=== PATIENT | male | born 1950 | race Caucasian/White ===

== ENCOUNTER 2017-02-16 09:58 | Emergency (ER) | payer MEDICARE, OTHER ==
[~2017-02-16] VITALS: Ht 170.2 cm; Wt 82.6 kg
[~2017-02-16 09:58] MED LIST: HUMULIN R100 UNIT/1 SUBQ; LEVEMIR100 UNIT/1 SUBQ; LIPITOR10 MG ORAL; LOSARTAN-HCTZ1 EACH ORAL; LOTENSIN40 MG ORAL; NORCO 5-325 TA1 EACH ORAL; PLAVIX75 MG ORAL; PREVACID30 MG ORAL
[2017-02-16] MEDS ORDERED: GABAPENTIN300 MG ORAL (10:45)
[2017-02-16 10:51] VITALS: BP 153/94
[2017-02-16 10:57] VITALS: BP 153/94
--- NOTE | 2017-02-16 11:04 | Emergency Room Report ---
History of Present Illness General Chief Complaint: Pain Source: Patient Present Illness HPI [id number] with known DM [employer] patient with "muscle spasms" lower extremities for ~1 week Associated with intermittent numbness, "cold legs," and "deep pain." Was given Robaxin by PMD without much improvement Compliant with DM meds Denies fever/chills, weakness to lower extremities Allergies: Coded Allergies: No Known Allergies (Unverified , 09/10/13) Patient History Past Medical History: DM Past Surgical History: none Pertinent Family History: none Social History: Denies: alcohol use, drug use, smoking Immunizations: UTD Reviewed Nursing Documentation: PMH: Agreed, PSxH: Agreed Nursing Documentation-PMH Hx Cardiac Problems: Yes Hx Hypertension: Yes Hx Asthma: Yes Hx Diabetes: Yes Hx Cancer: No Hx Gastrointestinal Problems: Yes Hx Neurological Problems: No Hx Cerebrovascular Accident: Yes - 2011 Review of Systems All Other Systems: negative except mentioned in HPI Physical Exam Vital Signs Date Time Temp Pulse Resp B/P Pulse Ox O2 Delivery O2 Flow Rate FiO2 02/16/17 10:04 97.5 82 16 173/94 95 Room Air Sp02 EP Interpretation: reviewed, normal General Appearance: normal inspection, well appearing, no apparent distress, alert, non-toxic Head: normocephalic, atraumatic Eyes: bilateral eye EOMI, bilateral eye PERRL ENT: normal ENT inspection, hearing grossly normal, normal voice Neck: normal inspection, full range of motion, supple, no bony tend Respiratory: normal inspection, lungs clear, normal breath sounds, no respiratory distress, no retraction, no wheezing Cardiovascular #1: regular rate, rhythm, no edema Gastrointestinal: normal inspection, normal bowel sounds, non tender, soft, no guarding, no hernia Genitourinary: no CVA tenderness Musculoskeletal: normal inspection, back normal, normal range of motion, Nathan' s Sign negative Neurologic: normal inspection, alert, oriented x3, responsive, gauger chief III-XII nml as tested, speech normal Psychiatric: normal inspection, judgement/insight normal, mood/affect normal Skin: normal inspection, normal color, no rash Medical Decision Making Diagnostic Impression: Primary Impression: Neuropathy ER Course Sympotoms c/w neuropathy, likely diabetic related VSS. Afebrile. No calf ttp, negative homans. unlikely DVT No erythema or signs of cellulitis No focal neuro deficits, unlikely CVA Rx Gabapentin to be up dosed as needed by PMD Last Vital Signs Date Time Temp Pulse Resp B/P Pulse Ox O2 Delivery O2 Flow Rate FiO2 02/16/17 10:57 97.5 78 16 153/94 95 Room Air Status: improved Disposition: HOME, SELF-CARE Condition: Improved Scripts Gabapentin* (GABAPENTIN*) 300 Mg Capsule 300 MG ORAL THREE TIMES A DAY for 7 Days, #90 CAP 0 Refills Prov: ARIANA BUITRAGO M.D. 02/16/17 Referrals: NON PHYSICIAN (PCP) Patient Instructions: Peripheral Neuropathy Additional Instructions: - Start Gabapentin 300mg 3x a day - ask your doctor to increase up your dose as needed until relieved ARIANA BUITRAGO M.D. Feb 16, 2017 11:04
== END 2017-02-16 10:57 | disposition home or self-care (01) ==
LOC: EMR 10:15
DX: E11.40 Type 2 diabetes mellitus with diabetic neuropathy, unspecified (principal); I10 Essential (primary) hypertension; Z86.73 Personal history of transient ischemic attack (TIA), and cerebral infarction without residual deficits
CPT/HCPCS: 99283

== ENCOUNTER 2017-04-02 07:37 | Day surgery (SDC) | payer MEDICARE, OTHER ==
--- NOTE | 2017-03-29 11:42 | Pre-Procedure Note/Attestation ---
Pre-Procedure Note/Attestation Complete Prior to Procedure Planned Procedure: bilateral Procedure Narrative: 1- Ptosis correction upper lids. 2- Entropion correction upper lids. 3-Blepharoplasty uppers lids. Indications for Procedure Pre-Operative Diagnosis: 1- Blepharoptosis upper lids 2-Entropion upper lids. 3-Blepharochalasis upper lid Attestation I attest that I discussed the nature of the procedure; its benefits; risks and complications; and alternatives (and the risks and benefits of such alternatives ), prior to the procedure, with the patient (or the patient's legal applications sales representative). I attest that, if there was a reasonable possibility of needing a blood transfusion, the patient (or the patient's legal applications sales representative) was given the [facility] standardized written summary, pursuant to the Wilman Ricci Blood Safety Act ([place] Health and Safety Code # 1645, as amended). I attest that I re-evaluated the patient just prior to the surgery and that there has been no change in the patient's H&P, except as documented below: HUDSON LOPEZ Mar 29, 2017 11:42
[~2017-04-02] VITALS: Ht 172.7 cm; Wt 83.5 kg
[2017-04-02] VITALS (13 sets, daily range): BP systolic 133–185; BP diastolic 75–104
[~2017-04-02 07:37] MED LIST changes: +Akten 3.5% 1ml Btl BOTH EYES ONE; +BSS 15ml BTL ONE; +Bupivacaine 0.75% 30ml vial INJ ONE; +GABAPENTIN300 MG ORAL; +Lidocaine 2% 20mg/ml/Epi 0.005mg/ml 20ml vial ONE; +Maxitrol Opth Oint 3.5gm BOTH EYES ONE; +Povidone-Iodine 5% opth solution ONE
[2017-04-02 09:06] LABS: BASOPHILS % (AUTO) 1.7 % (0.0-2.0); EOSINOPHILS % (AUTO) 3.6 % (0.0-3.0); LYMPHOCYTES % (AUTO) 25.7 % (20.0-45.0); MEAN CORPUSCULAR HGB CONC 33.5 G/DL (32.0-36.0); MEAN CORPUSCULAR VOLUME 92 FL (80-99); MEAN PLATELET VOLUME 9.3 FL (6.5-10.1); MONOCYTES % (AUTO) 8.7 % (1.0-10.0); NEUTROPHILS % (AUTO) 60.3 % (45.0-75.0); PLATELET COUNT 228 K/UL (150-450); RED BLOOD COUNT 4.95 M/UL (4.70-6.10); RED CELL DISTRIBUTION WIDTH 11.2 % (11.6-14.8); WHITE BLOOD COUNT 7.3 K/UL (4.8-10.8)
[2017-04-02 09:16] LABS: PROTHROMBIN TIME 10.2 SEC (9.30-11.50)
[2017-04-02 09:19] LABS: ANION GAP 17 (5-15); CALCIUM 9.1 mg/dL (8.6-10.2); CARBON DIOXIDE 24 mEQ/L (20-30); CHLORIDE 97 mEQ/L (98-107); GLOMERULAR FILTRATION RATE > 60 mL/min (>60); HEMOLYSIS 78; POTASSIUM 4.3 mEQ/L (3.4-4.9); SODIUM 138 mEQ/L (135-145)
--- NOTE | 2017-04-02 10:26 | Anethesia Preoperative Eval ---
Anesthesia Pre-op PMH/ROS General Date of Evaluation: Apr 02, 2017 Time of Evaluation: 09:32 Anesthesiologist: Smiley ASA Score: ASA 3 Mallampati Score Class I : Soft palate, uvula, fauces, pillars visible Class II: Soft palate, uvula, fauces visible Class III: Soft palate, base of uvula visible Class IV: Only hard plate visible Mallampati Classification: Class II Surgeon: Carlos Diagnosis: Bilateral ptosis Surgical Procedure: Bilateral blepharoplasty Anesthesia History: none Social History: smoking - h/o Allergies: Coded Allergies: No Known Allergies (Unverified , 09/10/13) Medications: see eMAR Past Medical History Cardiovascular: Reports: HTN, CAD - stents x 3, CT - x 2 norecent chest pains Pulmonary: Denies: asthma, COPD, VENTURA, other Gastrointestinal/Genitourinary: Reports: GERD, Denies: CRI, ESRD, other Neurologic/Psychiatric: Denies: dementia, CVA, depression/anxiety, TIA, other Endocrine: Reports: DM - on insuli poorly controled, Denies: hypothyroidism, steroids, other HEENT: Reports: cataract (L), cataract (R) - s/p Sx, Denies: glaucoma, SNOQUALMIE (L), SNOQUALMIE (R), other Hematology/Immune: Denies: anemia, DVT, bleeding disorder, other Musculoskeletal/Integumentary: Denies: OA, RA, DJD, DDD, edema, other PMH Narrative: as above PSxH Narrative: Bilateral cataracts coronary stents placement Anesthesia Pre-op Phys. Exam Physician Exam Last Vital Signs Date Time Temp Pulse Resp B/P (MAP) Pulse Ox O2 Delivery O2 Flow Rate FiO2 04/02/17 08:55 98.6 77 18 156/92 94 Room Air Constitutional: NAD Neurologic: CN 2-12 intact Cardiovascular: RRR, no M/R/G Respiratory: CTA Gastrointestinal: S/NT/ND Airway Exam Mallampati Score: Class II MO: limited Neck: stiff ROM: limited Teeth: missing Dentures: no upper, no lower Anesthesia Pre-op A/P Labs Hematology Test 04/02/17 08:50 White Blood Count 7.3 K/UL (4.8-10.8) Red Blood Count 4.95 M/UL (4.70-6.10) Hemoglobin 15.4 G/DL (14.2-18.0) Hematocrit 45.8 % (42.0-52.0) Mean Corpuscular Volume 92 FL (80-99) Mean Corpuscular Hemoglobin 31.0 PG (27.0-31.0) Mean Corpuscular Hemoglobin Concent 33.5 G/DL (32.0-36.0) Red Cell Distribution Width 11.2 % (11.6-14.8) L Platelet Count 228 K/UL (150-450) Mean Platelet Volume 9.3 FL (6.5-10.1) Neutrophils (%) (Auto) 60.3 % (45.0-75.0) Lymphocytes (%) (Auto) 25.7 % (20.0-45.0) Monocytes (%) (Auto) 8.7 % (1.0-10.0) Eosinophils (%) (Auto) 3.6 % (0.0-3.0) H Basophils (%) (Auto) 1.7 % (0.0-2.0) Coagulation Test 04/02/17 08:50 Prothrombin Time 10.2 SEC (9.30-11.50) Prothromb Time International Ratio 1.0 (0.9-1.1) Activated Partial Thromboplast Time 26 SEC (23-33) Chemistry Test 04/02/17 08:50 Sodium Level 138 mEQ/L (135-145) Potassium Level 4.3 mEQ/L (3.4-4.9) Chloride Level 97 mEQ/L (98-107) L Carbon Dioxide Level 24 mEQ/L (20-30) Anion Gap 17 (5-15) H Blood Urea Nitrogen 11 mg/dL (7-23) Creatinine 1.0 mg/dL (0.7-1.2) Estimat Glomerular Filtration Rate > 60 mL/min (>60) Glucose Level 307 mg/dL (74-106) H Calcium Level 9.1 mg/dL (8.6-10.2) Accucheck 233 at admission 10 un of insulin given Studies Pre-op Studies: EKG - SR Risk Assessment & Plan Assessment: ASA 3 Plan: MAC Status Change Before Surgery: No Pre-Antibiotics Drug: none LA HOLLIDAY M.D. Apr 02, 2017 10:26
[2017-04-02] MEDS ORDERED: LR 1000ml 1,000 ML IVLG SCH (10:27)
[2017-04-02] MEDS ORDERED: Labetalol 5mg/ml 20ml vial IV ONE (10:30)
[2017-04-02] MEDS ORDERED: Midazolam 2mg/2ml Inj ONE (10:30)
[2017-04-02] MEDS ORDERED: Sterile Water Irrig 1000ml IRRIG ONE (10:30)
[2017-04-02] MEDS ORDERED: Hydromorphone 0.5mg/0.5ml inj IVP PRN (10:30)
[2017-04-02] MEDS ORDERED: NS Irrig 1000ml ONE (10:30)
[2017-04-02] MEDS ORDERED: fentaNYL 100 mcg/2 mL IV ONE (10:30)
[2017-04-02] MEDS ORDERED: Propofol 200mg/20ml IV ONE (10:30)
[2017-04-02] MEDS ORDERED: LR 1000ml ONE (10:30)
[2017-04-02] MEDS ORDERED: DiphenhydrAMINE 50mg/ml Inj IVP PRN (10:30)
--- NOTE | 2017-04-02 11:22 | Discharge Summary ---
Discharge Summary Discharge Summary Discharge Summary DATE OF ADMISSION: 04/02/2017 DATE OF DISCHARGE: 04/02/2017 REASON FOR HOSPITALIZATION: 1- Ptosis upper lids 2- Entropion upper lids 3- Blepharochalasis bilaterally upper lids SURGERY PERFORMED: 1- Ptosis correction upper lids 2- Entropion correction upper lids 3- Blepharoplasty upper lids CONDITION IN THE HOSPITAL:The patient tolerated the surgery without complications. DISCHARGE CONDITION: The patient was stable at discharge. DISCHARGE MEDICATIONS: 1. Tobradex eye drops one drop q.i.d, 2 Maxitrol eye ointment apply to lids bid, OU 3- Keflex 500 mg one PO q8h. 4- Bennet 5mg/325mg one PO q6h PRN per Pain 3. POSTOPERATIVE ORDERS: The patient has to rest at home. No bending, No lifting, No watching Television tonight. POSTOPERATIVE FOLLOW UP: The patient will be followed in my office tomorrow morning at 7 o'clock. HUDSON LOPEZ Apr 02, 2017 11:22
--- NOTE | 2017-04-02 11:25 | Brief Operative Note ---
Immediate Post Operative Note Operative Note Chief Complaint: Droopy eyelids, dofficulty driving and reading Pre-op Diagnosis: 1- Blepharoptosis upper lids 2-Entropion upper lids. 3-Blepharochalasis upper lid Procedure: 1- Ptosis correction upper lids 2- Entropion correction, upper lids 3- Blepharoplasty, upper lids Post-op Diagnosis: same as pre-op Surgeon: Hudson Gonzalez MD Cleat Maker: None Additional Surgeons: None Anesthesiologist: Dr. Reis Anesthesia: MAC Specimen: none Complications: none Condition: stable Fluids: 500 ml Estimated Blood Loss: none Drains: none Implant(s) used?: HUDSON Hannon Apr 02, 2017 11:25
--- NOTE | 2017-04-02 11:29 | Immediate Post-Op Evaluation ---
Immediate Post-Op Evalulation Immediate Post-Op Evalulation Procedure: Bilateral blepharoplasty Date of Evaluation: Apr 02, 2017 Time of Evaluation: 11:27 IV Fluids: 400 Blood Products: none Estimated Blood Loss: min Urinary Output: none Blood Pressure Systolic: 176 Blood Pressure Diastolic: 87 Pulse Rate: 64 Respiratory Rate: 20 O2 Sat by Pulse Oximetry: 99 Temperature (Fahrenheit): 97.6 Pain Score (1-10): 2 Nausea: No Vomiting: No Complications none Patient Status: awake, patent, none Hydration Status: adequate LA HOLLIDAY M.D. Apr 02, 2017 11:29
[2017-04-02] MEDS ORDERED: NovoLOG Insulin Flexpen SUBQ ONE (11:50)
--- NOTE | 2017-04-02 12:47 | 48 Hour Post Anesthesia Eval ---
Post Anesthesia Evaluation Procedure: Bilateral blepharoplasty Date of Evaluation: Apr 02, 2017 Time of Evaluation: 12:45 Blood Pressure Systolic: 155 0: 89 Pulse Rate: 85 Respiratory Rate: 22 Temperature (Fahrenheit): 97 O2 Sat by Pulse Oximetry: 99 Airway: patent Nausea: No Vomiting: No Pain Intensity: 2 Hydration Status: adequate Cardiopulmonary Status: stable Mental Status/LOC: patient returned to baseline Follow-up Care/Observations: n/a Post-Anesthesia Complications: none Follow-up care needed: ready to discharge LA HOLLIDAY M.D. Apr 02, 2017 12:47
--- NOTE | 2017-04-02 22:45 | Pre-op HX & Phy Repo 2 SIG ---
DATE OF ADMISSION: 04/02/2017 PRESURGICAL INTERNAL MEDICINE HISTORY AND PHYSICAL Reason For Evaluation: The patient is a 66-year-old male, who is going for elective surgery on the bilateral eyes. The patient has bilateral ptosis. Please see History and Physical by Dr. Jere Gonzalez. The patient was evaluated. Chart was reviewed. Past Medical History And Review Of Systems: Remarkable for heart attack x2, last year. The patient had coronary artery stent placement, three stents. The patient has a history of hypertension. No stroke or seizures. Denies history of lung problem, asthma, or bronchitis. The patient has insulin-dependent diabetes mellitus. No history of GI bleeding or hepatitis. No history of renal insufficiency or prostate problem. No anemia. No thyroid problem. Colon polyps removed approximately a year ago. Past Surgical History: Cataract x2, coronary artery stent procedure, and colon polyp removed. ALLERGIES: Not known to medication or food. Present Medications: Include Lipitor 40 mg, lisinopril 20 mg, Levemir 40 units, baby aspirin, Plavix, and gabapentin. Habits: Denies history of smoke. Drinks beer almost daily. No street drugs. Family History: Mother has diabetes mellitus. Father from heart attack. PHYSICAL EXAMINATION: General: Alert, well-developed, well-nourished male in his 60s, no acute distress. Vital Signs: Blood pressure 156/92, pulse 97, and O2 saturation 94% on room air. SKIN: Clear and dry. No rashes. LYMPHATICS: Lymph nodes not enlarged. HEENT: Head, normocephalic. Ears, clear. Eyes, full description per Dr. Jere Gonzalez. Mouth, clear and moist. Absence of some teeth on the side. Neck: Supple. No jugular venous distention. Carotids artery +2. Trachea midline. CHEST: No deformity or asymmetry. LUNGS: Clear to auscultation and percussion. No rales or rhonchi. HEART: Sinus rhythm. No ectopy. No murmur. No S3 or S4. ABDOMEN: Soft, benign. Liver and spleen not enlarged. No rebound. Extremities: No deformity. No peripheral edema. No varicose vein. No calf tenderness. GENITOURINARY: Normal for gender. No dysuria. CVA nontender. NEUROLOGIC: No tremor. No nystagmus. The patient is NPO from last night. ECG, normal sinus rhythm, normal ECG. Blood sugar 256 mg/dL. The patient was given 10 units of regular NovoLog subcutaneous, check blood sugars in 30 minutes. IMPRESSION: 1. Bilateral ptosis. 2. Hypertension. 3. History of myocardial infarction x2, last year 2015. 4. Insulin-dependent diabetes mellitus with complication of peripheral neuropathy, poorly controlled. PLAN: Blepharotomy, bilateral, per Dr. Jere Gonzalez. Conclusion: The patient has a poorly controlled diabetes and blood pressure. He has a history of two myocardial infarction. EKG is normal. The patient is asymptomatic. He did not eat or drink from last night. The patient's condition optimized for surgery. Thank you very much, Dr. Gonzalez, for the privilege to participate in presurgical care of this interesting patient. Farshad Massey M.D. DR: CARISSA JOB#: [id number] CC:
--- NOTE | 2017-04-03 09:15 | Operative Note - Dictated ---
DATE OF OPERATION: 04/02/2017 FACILITY: [facility] SURGEON: Jere Gonzalez M.D. SPICE GRINDER: None. ANESTHESIOLOGIST: Duane Reis M.D. Anesthesia: Monitored anesthesia care (MAC) plus local anesthesia with lidocaine 2% and epinephrine 1:100,000. PREOPERATIVE DIAGNOSES: 1. Ptosis, upper lids. 2. Entropion, upper lids. 3. Blepharochalasis and dermatochalasis, both eyes upper lids. POSTOPERATIVE DIAGNOSES: 1. Ptosis, upper lids. 2. Entropion, upper lids. 3. Blepharochalasis and dermatochalasis, both eyes, upper lids. SURGERY PERFORMED: 1. Ptosis correction, upper lids. 2. Entropion correction, upper lids. 3. Blepharoplasty, upper lids. Indications For Surgery: The patient is a 66-year-old gentleman with history of hypertension, coronary artery disease, arrhythmia, obesity, gastroesophageal reflux disease, and diabetes mellitus. He has also osteoarthritis, spinal disc disease, . The patient has a lot of medical problems and he is taking a lot of medications including insulin, metformin, Plavix, Diovan hydrochlorothiazide, losartan, and Lipitor. He is complaining of blurry vision and droopy eyelids and difficulty driving and reading. On examination of the patient, he has ptosis bilaterally about 2 mm in each eye. The patient has dermatochalasis and blepharochalasis and eyebrow ptosis as well. He has some entropion of upper lids as well. His problem is progressive and loosening of the skin and subdermal tissue collection. To correct all these anatomical changes and disfigurement, we need to perform surgery to correct all those problems as well. The only way is surgical correction of the anatomic changes. Informed Consent: The procedure, the nature of the procedure, benefits, risks, potential complications, and alternatives were explained in detail to the patient. He voiced understanding and accepted all the complications. The potential complications including, but not limited to bleeding, infection, undercorrection, overcorrection, dry eye syndrome, change in vision, losing eyelashes and eyebrows, ecchymosis, facial edema, vision change and even loss of vision and loss of the eye were explained in detail to the patient, who voiced understanding and accepted all the complications. There is no alternative for this patient. Therefore, the patient accepted to perform surgery for correction of ptosis and anatomic changes. Description Of Surgery And Findings: After explaining the complications, the patient signed the consent form, which is in the chart. Following that, the patient was taken to the operation room in a stable condition. IV sedation was given by the anesthesiologist, Dr. Reis. After adequate anesthesia and sedation had been achieved, both eyes and upper eyelids, and eyebrows were anesthetized with lidocaine 2% and epinephrine 1:100,000. Following that, the upper eyelids were marked with a marking pen 10 mm above the root of the eyelashes and 15 mm below the lower part of the eyebrow. About 25 mm of the skin was left to facilitate eye closure. IV sedation was given by the anesthesiologist, Dr. Reis. After adequate anesthesia and sedation had been achieved, the upper lids were anesthetized with 2% lidocaine and epinephrine 1:100,000. Following that, using a Bovie knife, the skin and subdermal tissue were dissected from the orbicularis oculi muscle and excised. Narrow cuts were made into the orbicularis oculi muscle and 2 fat compartments were removed. The fat compartments were sculptured conservatively. Following that, the levator palpebrae superioris muscle was relieved and aponeurosis of the muscle tacked about 6 mm and stitched with 6-0 Vicryl and then the knots were trimmed. Following that, the orbicularis oculi muscle was stitched, and hemostasis was performed, and the skin was stitched with a plain 6-0 gut in the fashion of continuous running aesthetic stitches. Then, the left eye was repaired in same way. removed. The fat compartment was sculptured and then the skin was stitched with 6-0 plain suture gut in the fashion of continuous running. The patient tolerated the surgery without complications. At the end of the surgery, Maxitrol eye ointment was applied to the area. Following that, the patient was transferred to the recovery room. In the recovery room, the wound was checked for bleeding. There was no bleeding. Cold compresses were applied to the area. Postoperative orders and directions were given to the patient. The patient will be discharged home upon stabilization. The patient will be followed in my office tomorrow morning. Jere Gonzalez M.D. DR: GAIL JOB#: [id number] CC:
--- NOTE | 2017-04-03 16:37 | Cardiology Report ---
APPROVED REPORT EKG Measurement Heart [id number] Normal sinus rhythm Normal ECG
== END 2017-04-02 14:35 | disposition home or self-care (01) ==
LOC: SUR 07:37
DX: H02.403 Unspecified ptosis of bilateral eyelids (principal); H02.004 Unspecified entropion of left upper eyelid; H02.001 Unspecified entropion of right upper eyelid; H02.34 Blepharochalasis left upper eyelid; H02.31 Blepharochalasis right upper eyelid; E11.65 Type 2 diabetes mellitus with hyperglycemia; E11.42 Type 2 diabetes mellitus with diabetic polyneuropathy; I10 Essential (primary) hypertension; I25.2 Old myocardial infarction; I25.10 Atherosclerotic heart disease of native coronary artery without angina pectoris; Z95.5 Presence of coronary angioplasty implant and graft; K21.9 Gastro-esophageal reflux disease without esophagitis; E66.9 Obesity, unspecified; Z68.28 Body mass index [BMI] 28.0-28.9, adult; Z79.02 Long term (current) use of antithrombotics/antiplatelets; Z79.84 Long term (current) use of oral hypoglycemic drugs; Z79.4 Long term (current) use of insulin
CPT/HCPCS: 15822; 36415; 67921; 80048; 82962; 85025; 85610; 85730; 93005; J0360; J2250; J2704; J3010; J7120; 94003; 94150

== ENCOUNTER 2019-01-19 10:57 | Emergency (ER) | payer MEDICARE, OTHER ==
[~2019-01-19] VITALS: Ht 170.2 cm; Wt 86.2 kg
[~2019-01-19 10:57] MED LIST changes: -Akten 3.5% 1ml Btl BOTH EYES ONE; -BSS 15ml BTL ONE; -Bupivacaine 0.75% 30ml vial INJ ONE; -Lidocaine 2% 20mg/ml/Epi 0.005mg/ml 20ml vial ONE; -Maxitrol Opth Oint 3.5gm BOTH EYES ONE; -Povidone-Iodine 5% opth solution ONE
[2019-01-19] MEDS ORDERED: AMLODIPINE BESYL5 MG ORAL (11:11)
[2019-01-19] MEDS ORDERED: METOPROLOL TART50 M1 ORAL (11:11)
--- NOTE | 2019-01-19 11:32 | NUR ---
ED Nurse Note: pt walked in c/o high blood sugar, weakness and headache x 2 days, pt reports he hasn't been drinking water for two days, pt reports he fell in the room from the bed due to weakness but denies head injuries nor loc. pt accucheck 351 in triage noted. pt AA&ox4, gcs=15, skin warm and dry,normal skin color, resp even and unlabored on RA, -n/v/d, ambulates w/ steady gait, NSR on bus monitor, vss, will cont monitor. safety precautions in place.
[2019-01-19 11:35] VITALS: BP 158/76
[2019-01-19 11:46] LABS: BASOPHILS % (AUTO) 0.6 % (0.0-2.0); HEMATOCRIT 44.6 % (42.0-52.0); HEMOGLOBIN 15.1 G/DL (14.2-18.0); LYMPHOCYTES % (AUTO) 10.7 % (20.0-45.0); MEAN CORPUSCULAR VOLUME 93 FL (80-99); MONOCYTES % (AUTO) 6.8 % (1.0-10.0); NEUTROPHILS % (AUTO) 81.8 % (45.0-75.0); PLATELET COUNT 166 K/UL (150-450); RED BLOOD COUNT 4.81 M/UL (4.70-6.10); WHITE BLOOD COUNT 7.8 K/UL (4.8-10.8)
[2019-01-19 12:02] LABS: ANION GAP 12 mmol/L (5-15); BLOOD UREA NITROGEN 15 mg/dL (7-18); CALCIUM 8.8 MG/DL (8.5-10.1); CARBON DIOXIDE 25 MMOL/L (21-32); CHLORIDE 97 MMOL/L (98-107); CREATININE 1.2 MG/DL (0.55-1.30); POTASSIUM 3.8 MMOL/L (3.5-5.1); SODIUM 133 MMOL/L (136-145)
[2019-01-19 12:09] LABS: ALANINE AMINOTRANSFERASE 31 U/L (12-78); ALBUMIN 3.8 G/DL (3.4-5.0); ALKALINE PHOSPHATASE 82 U/L (46-116); ASPARTATE AMINO TRANSFERASE 32 U/L (15-37); BILIRUBIN,TOTAL 0.8 MG/DL (0.2-1.0)
[2019-01-19 12:25] LABS: APPEARANCE,URINE CLEAR; BILIRUBIN, URINE NEGATIVE (NEGATIVE); GLUCOSE, URINE (UA) 4+ (NEGATIVE); KETONES,URINE 1+ (NEGATIVE); LEUKOCYTE ESTERASE ,URINE 1+ (NEGATIVE); NITRITE,URINE NEGATIVE (NEGATIVE); PH,URINE 6 (4.5-8.0); PROTEIN,URINE 2+ (NEGATIVE); UROBILINOGEN,URINE 4 MG/DL (0.0-1.0)
[2019-01-19 12:38] LABS: COLOR,URINE YELLOW
[2019-01-19] MEDS ORDERED: BLOOD GLUCOSE1 EAC1 MC (13:03)
--- NOTE | 2019-01-19 13:22 | NUR ---
ED Nurse Note: Pt cleared by health care Provider for discharge. DC instructions/prescription was given and explained to pt and verbalized understanding of teachings. All medical deviecs such as ID band removed. Pt is AAO x4, ambulatory and left with all personal belongings.
[2019-01-19 13:23] VITALS: BP 158/76
--- NOTE | 2019-01-19 15:05 | Emergency Room Report ---
History of Present Illness General Chief Complaint: Abnormal Labs Source: Patient Present Illness HPI 68-year-old male presents ED for evaluation. Patient states his sugar has been high he has been feeling dizzy and weak. For the last 2 days. Accu-Chek over 300. States that his glucometer is broken and he has not been able to check his sugar at home. States he is taking his medication as prescribed. Denies chest pain or shortness of breath. Denies fevers or chills. No other aggravating or relieving factors. Denies any other associated symptoms Allergies: Coded Allergies: No Known Allergies (Unverified , 09/10/13) Patient History Past Medical History: DM, HTN, asthma, CVA/TIA Past Surgical History: none Pertinent Family History: none Social History: Denies: smoking, alcohol use, drug use Immunizations: UTD Reviewed Nursing Documentation: PMH: Agreed; PSxH: Agreed Nursing Documentation-PM Past Medical History: No History, Except For Hx Cardiac Problems: Yes Hx Hypertension: Yes Hx Asthma: Yes Hx Diabetes: Yes Hx Cancer: No Hx Gastrointestinal Problems: Yes Hx Neurological Problems: No Hx Cerebrovascular Accident: Yes - 2001 Review of Systems All Other Systems: negative except mentioned in HPI Physical Exam Vital Signs Date Time Temp Pulse Resp B/P (MAP) Pulse Ox O2 Delivery O2 Flow Rate FiO2 01/19/19 11:04 98.4 64 18 156/81 (106) 96 Room Air Sp02 EP Interpretation: reviewed, normal General Appearance: no apparent distress, alert, GCS 15, non-toxic Head: normocephalic, atraumatic Eyes: bilateral eye normal inspection, bilateral eye PERRL ENT: hearing grossly normal, normal pharynx, no angioedema, normal voice Neck: full range of motion, supple/symm/no masses Respiratory: chest non-tender, lungs clear, normal breath sounds, speaking full sentences Cardiovascular #1: regular rate, rhythm, no edema Cardiovascular #2: 2+ carotid (R), 2+ carotid (L), 2+ radial (R), 2+ radial (L) , 2+ dorsalis pedis (R), 2+ dorsalis pedis (L) Gastrointestinal: normal bowel sounds, non tender, soft, non-distended, no guarding, no rebound Rectal: deferred Genitourinary: normal inspection, no CVA tenderness Musculoskeletal: back normal, gait/station normal, normal range of motion, non- tender Neurologic: alert, oriented x3, responsive, motor strength/tone normal, sensory intact, speech normal Psychiatric: judgement/insight normal, memory normal, mood/affect normal, no suicidal/homicidal ideation Reflexes: 3+ bicep (R), 3+ bicep (L), 3+ tricep (R), 3+ tricep (L), 3+ knee (R) , 3+ knee (L) Lymphatic: no adenopathy Medical Decision Making Diagnostic Impression: Primary Impression: Hyperglycemia ER Course Hospital Course 68-year-old male presenting to ED with elevated BS. c/o dizziness and weakness Differential diagnoses include: ETOH/drug ingestion, sepsis, DKA Clinical course Patient placed on stretcher. 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 After initial history and physical I ordered labs, IV fluids, urine Labs-glucose > 300, no anion gap, bicarbonate normal, electrolytes ok. no leukocytosis. acetone negative, UA negative On reassessment patient feeling better after IV hydration. Discussed findings with patient. Encouraged importance of checking his sugar and compliance with his medications. Will prescribe a new glucometer. Safe for discharge close outpatient follow-up. Will provide referrals i. I feel this is a highly complex case requiring extensive working including EKG/Rhythm strip, Xray/CT/US, Blood/urine lab work, repeat exams while in ED, and administration of strong opiates/narcotics for pain control, admission to hospital or close patient follow up. diagnosis - hyperglycemia Stable and discharged to home with prescription for glucometer. take medications as prescribed. Followup with PMD. Return to ED if symptoms recur or worsen Labs Test 01/19/19 11:20 01/19/19 12:00 01/19/19 12:05 White Blood Count 7.8 K/UL (4.8-10.8) Red Blood Count 4.81 M/UL (4.70-6.10) Hemoglobin 15.1 G/DL (14.2-18.0) Hematocrit 44.6 % (42.0-52.0) Mean Corpuscular Volume 93 FL (80-99) Mean Corpuscular Hemoglobin 31.5 PG (27.0-31.0) Mean Corpuscular Hemoglobin Concent 34.0 G/DL (32.0-36.0) Red Cell Distribution Width 11.0 % (11.6-14.8) Platelet Count 166 K/UL (150-450) Mean Platelet Volume 8.6 FL (6.5-10.1) Neutrophils (%) (Auto) 81.8 % (45.0-75.0) Lymphocytes (%) (Auto) 10.7 % (20.0-45.0) Monocytes (%) (Auto) 6.8 % (1.0-10.0) Eosinophils (%) (Auto) 0.0 % (0.0-3.0) Basophils (%) (Auto) 0.6 % (0.0-2.0) Sodium Level 133 MMOL/L (136-145) Potassium Level 3.8 MMOL/L (3.5-5.1) Chloride Level 97 MMOL/L (98-107) Carbon Dioxide Level 25 MMOL/L (21-32) Anion Gap 12 mmol/L (5-15) Blood Urea Nitrogen 15 mg/dL (7-18) Creatinine 1.2 MG/DL (0.55-1.30) Estimat Glomerular Filtration Rate 59.9 mL/min (>60) Glucose Level 362 MG/DL (74-106) Calcium Level 8.8 MG/DL (8.5-10.1) Magnesium Level 1.7 MG/DL (1.8-2.4) Total Bilirubin 0.8 MG/DL (0.2-1.0) Aspartate Amino Transf (AST/SGOT) 32 U/L (15-37) Alanine Aminotransferase (ALT/SGPT) 31 U/L (12-78) Alkaline Phosphatase 82 U/L (46-116) Total Protein 7.5 G/DL (6.4-8.2) Albumin 3.8 G/DL (3.4-5.0) Globulin 3.7 g/dL Albumin/Globulin Ratio 1.0 (1.0-2.7) Urine Color Yellow Urine Appearance Clear Urine pH 6 (4.5-8.0) Urine Specific [place] 1.020 (1.005-1.035) Urine Protein 2+ (NEGATIVE) Urine Glucose (UA) 4+ (NEGATIVE) Urine Ketones 1+ (NEGATIVE) Urine Blood 3+ (NEGATIVE) Urine Nitrite Negative (NEGATIVE) Urine Bilirubin Negative (NEGATIVE) Urine Urobilinogen 4 MG/DL (0.0-1.0) Urine Leukocyte Esterase 1+ (NEGATIVE) Urine RBC 2-4 /HPF (0 - 0) Urine WBC 2-4 /HPF (0 - 0) Urine Squamous Epithelial Cells Occasional /LPF Urine Bacteria Occasional /HPF (NONE) Urine Mucus Many /LPF (NONE/OCC) Acetone Level Negative (NEGATIVE) Last Vital Signs Date Time Temp Pulse Resp B/P (MAP) Pulse Ox O2 Delivery O2 Flow Rate FiO2 01/19/19 13:23 67 18 158/76 96 Room Air 01/19/19 11:35 98.4 Status: improved Disposition: HOME, SELF-CARE Condition: Stable Scripts Blood-Glucose Meter (BLOOD GLUCOSE METER) 1 Each Each EACH , #1 Prov: Fuad Costello MD 01/19/19 Referrals: NON PHYSICIAN (PCP) [facility] Patient Instructions: Hyperglycemia, [id number], Blood Glucose Monitoring, Adult Fuad Costello MD Jan 19, 2019 15:05
== END 2019-01-19 13:24 | disposition home or self-care (01) ==
LOC: EMR 11:59
DX: E11.65 Type 2 diabetes mellitus with hyperglycemia (principal); I10 Essential (primary) hypertension; Z86.73 Personal history of transient ischemic attack (TIA), and cerebral infarction without residual deficits
CPT/HCPCS: 36415; 80053; 81003; 82009; 82962; 83735; 85025; 96360; 99284